=== PATIENT | female | born 1970 | race Caucasian/White ===

== ENCOUNTER → 2023-10-22 16:04 | Outpatient (REF) | payer OTHER, SELFPAY | LOC: RAD 16:04 | PROVIDERS: ATTENDING PHYSICIAN Physician Assistant Medical; FAMILY PHYSICIAN Family Medicine | DX: M79.605 Pain in left leg (principal) | CPT/HCPCS: 76882 ==

== ENCOUNTER → 2024-02-14 06:30 | Day surgery (SDC) | payer OTHER, SELFPAY | LOC: GI 06:30 | PROVIDERS: ATTENDING PHYSICIAN Internal Medicine Gastroenterology | DX: Z12.11 Encounter for screening for malignant neoplasm of colon (principal); R19.5 Other fecal abnormalities; C18.0 Malignant neoplasm of cecum; K64.8 Other hemorrhoids; K57.30 Diverticulosis of large intestine without perforation or abscess without bleeding; D49.0 Neoplasm of unspecified behavior of digestive system | CPT/HCPCS: 45380; 88305; 88342 ==

== ENCOUNTER → 2024-02-21 14:27 | Outpatient (REF) | payer OTHER, SELFPAY | LOC: HWRAD 14:27 | PROVIDERS: ATTENDING PHYSICIAN Internal Medicine Gastroenterology; FAMILY PHYSICIAN Physician Assistant Medical | DX: C18.2 Malignant neoplasm of ascending colon (principal) | CPT/HCPCS: 71270; 74178; Q9967 ==

== ENCOUNTER 2024-03-28 11:35 | Inpatient (IN) | payer OTHER, SELFPAY ==
[2024-03-18 13:49] VITALS: BMI 23.1
[2024-03-19 11:04] LABS: Glycohemoglobin (HgbA1c) 5.5 % (4.0-5.6)
[2024-03-28] VITALS (12 sets, daily range): BP systolic 93–117; BP diastolic 55–76; BMI 23.1
[2024-03-28] MEDS: HEPARIN 5000 UNITS SC (12:39)
[2024-03-28] MEDS: TYLENOL 1000 MG PO (12:39)
[2024-03-28] MEDS: NORMOSOL-R 1000 IV ×2 (12:47→19:30)
--- NOTE | 2024-03-28 18:09 | W.IMMPOSTOP ---
Surgical Immed Post Op Note
-
Primary Surgeon: Ashish Tello MD
Wiener Packer: ROBERT Marlow
Pre-op Diagnosis: Cecal cancer
Post-op Diagnosis: Same
Procedure Performed: Robotic right colectomy with intracorporeal anastomosis
Anesthesia Type: GET
Specimen / Cultures: Right colon
Estimated Blood Loss: 15cc
Complications: None
Operative Findings: No evidence of metastatic disease
Tumor in the cecum
Isoperistaltic intracorporeal anastomosis
Patient's updated.
Colon Resection
Colon Resection
Operation performed with curative intent: Yes
Tumor Location: Cecum
Right Hemicolectomy: Ileocolic and Right Colic
[2024-03-28] MEDS: DILAUDID 0.25 MG IV (18:39)
--- NOTE | 2024-03-28 19:30 | PTCARENOTE ---
patient arrived to [facility] post op colon resection. Pt is AAOx3, very pleasant, oriented to room. at beside. 5 surgical incisions CDI. Carter in place with yellow, clear urine draining. IVF infusing per order. No needs at this time. Plan of
care explained, assessment on going.
[2024-03-28] MEDS: TYLENOL 650 MG PO (20:25)
[2024-03-28] MEDS: TORADOL 15 MG IV (20:25)
[2024-03-29] MEDS: TYLENOL PO (01:01)
[2024-03-29] MEDS: TORADOL 15 MG IV ×4 (01:51→19:45)
[2024-03-29 03:49] VITALS: BP 99/56
[2024-03-29] MEDS: TYLENOL 650 MG PO ×5 (04:39→19:45)
[2024-03-29 06:34] LABS: % Basophils 0.1 % (0-2); % Immature Granulocytes 0.5 % (0-0.5); % Lymphocytes 7.1 % (20.5-51.1); % Monocytes 2.7 % (1.7-9.3); % Neutrophils 89.6 % (42.2-75.2); Absolute Immature Granulocytes 0.1 10^3/uL (0-0.05); Absolute Lymphocytes 0.8 10^3/uL (1.2-3.4); Absolute Monocytes 0.3 10^3/uL (0.1-0.6); Absolute Neutrophils 9.8 10^3/uL (1.4-6.5); Hematocrit 34.5 % (37.0-47.0); Mean Corp Hgb Conc. 31.9 g/dL (33.0-37.0); Mean Corpuscular Volume 84.6 fL (81.0-99.0); Mean Platelet Volume 9.9 fL (7.4-10.4); Nucleated Red Blood Cells % 0 %; Platelet Count 260 10^3/uL (130-400); Red Blood Cell Count 4.08 10^6/uL (4.20-5.40); Red Cell Dist. Width 13.2 % (11.5-14.5)
[2024-03-29 07:00] VITALS: BP 107/54
[2024-03-29 07:03] LABS: Blood Urea Nitrogen 13 mg/dl (7-17); Calcium 8.3 mg/dl (8.4-10.2); Carbon Dioxide 20 mmol/L (22-30); Chloride 106 mmol/L (98-107); Estimated Creatinine Clearance 63 ml/min; Glucose 81 mg/dl (70-99); Potassium 4.4 mmol/L (3.5-5.1); Sodium 137 mmol/L (135-145); eGFR > 60.00
[2024-03-29] MEDS: ENTEREG 12 MG PO (08:21)
[2024-03-29] MEDS: NORMOSOL-R 1000 IV (08:25)
--- NOTE | 2024-03-29 10:12 | W.PN.CRS1 ---
Today's Communication / Plan
-
Clear liquids and advance to fulls when passing flatus.
Lovenox/SCD's/ambulation for DVT prophylaxis.
Remove Carter.
Ok to shower today.
Operative findings reviewed, all questions answered.
Assessment/Plan
-
POD#1 s/p 03/28/24 robotic right colectomy for cecal cancer.
Progressing well.
Awaiting return of GI function
Subjective Data
Procedure
03/28/24 Robotic right colectomy for cecal cancer
Subjective Data
Date of Service: March 29, 2024
Her preoperative nausea has resolved. She has minimal abdominal discomfort. No flatus/bm.
Objective Data
-
Vital Signs
Temp Pulse Resp BP Pulse Ox
98.8 F 92 18 107/54 95
03/29/24 07:00 03/29/24 07:00 03/29/24 07:00 03/29/24 07:00 03/29/24 07:00
Intake & Output
03/28/24 03/29/24 03/30/24
06:59 06:59 06:59
Intake Total 1250 / 1250
Output Total 1100 / 1100
Balance 150 / 150
Intake:
IV fluids (Total) 1250 / 1250
normosol 150 / 150
Output:
Urine, Carter 1100 / 1100
Lab Results
03/29/24 04:40
03/29/24 04:40
Physical Exam
-
General: No Acute Distress
Abdomen: Soft, Non Distended and Non Tender
Extremities: No Calf Tenderness
Incision: Clear, Dry, Intact
--- NOTE | 2024-03-29 10:12 | CM ---
Initial assessment completed
Pharmacy verified: [id number]
Patient and spouse live [facility]; 1 step to enter; 13 steps between floors; powder room 1st floor; 2nd floor bath has stall shower
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
DME: none
SNF/Home Health utilization history: none
Transportation: will provide ride home
Plan: discharge to home when stable; no needs anticipated
[2024-03-29 11:22] VITALS: BP 123/63
[2024-03-29 15:24] VITALS: BP 109/63
[2024-03-29] MEDS: LOVENOX 40 MG SC (17:05)
[2024-03-29] MEDS: NORMOSOL-R IV (18:09)
[2024-03-29] MEDS: ENTEREG PO (19:52)
[2024-03-29 19:56] VITALS: BP 127/75
[2024-03-29 23:17] VITALS: BP 99/63
[2024-03-30] MEDS: TYLENOL PO ×2 (00:40→05:02)
[2024-03-30] MEDS: NORMOSOL-R IV (00:41)
[2024-03-30] MEDS: TORADOL IV ×2 (02:00→08:14)
[2024-03-30 05:58] VITALS: BMI 23.2
[2024-03-30 07:00] VITALS: BP 102/64
--- NOTE | 2024-03-30 08:07 | W.PN.CRS1 ---
Today's Communication / Plan
-
Low residue diet
Discharge home if tolerating well. I reviewed postop instructions (diet, medications, wound care, activity, and follow-up).
Final path pending.
Assessment/Plan
-
POD#2 s/p robotic right colectomy for cecal cancer.
Progressing well.
Advance diet and probable discharge today.
Subjective Data
Procedure
03/28/24 Robotic right colectomy for cecal cancer
Subjective Data
Date of Service: March 30, 2024
She has minimal abdominal discomfort and is passing flatus. She is tolerating full liquids.
Objective Data
-
Vital Signs
Temp Pulse Resp BP Pulse Ox
98.3 F 74 14 102/64 96
03/30/24 07:00 03/30/24 07:00 03/30/24 07:00 03/30/24 07:00 03/30/24 07:00
Intake & Output
03/29/24 03/30/24 03/31/24
06:59 06:59 06:59
Intake Total 1250 / 1250 2420 / 2420
Output Total 1100 / 1100 2150 / 2150
Balance 150 / 150 270 / 270
Intake:
Oral fluids 1620 / 1620
IV fluids (Total) 1250 / 1250 800 / 800
normosol 150 / 150
Output:
Urine, Carter 1100 / 1100 800 / 800
Urine, Voided 1350 / 1350
Other:
Number of approximated MODERATE 1
amounts of urine
Lab Results
03/29/24 04:40
03/29/24 04:40
Physical Exam
-
General: No Acute Distress
Abdomen: Soft, Non Distended and Non Tender
Extremities: No Calf Tenderness
Incision: Clear, Dry, Intact
[2024-03-30] MEDS: ENTEREG PO (08:14)
[2024-03-30] MEDS: TYLENOL 650 MG PO (08:14)
--- NOTE | 2024-03-30 09:54 | W.DCSUMMARY ---
Discharge Summary
Discharge Data
Date of Admission: 03/28/24
Date of Discharge: 03/30/24
-
Pending Results: No
Hospital Course
Ms Medellin presented for scheduled surgical management of cecal cancer and underwent a robotic right colectomy with isoperistaltic intracorporeal anastomosis. She tolerated the procedure well without complication. Diet was able to be advanced
post operatively and well tolerated. She was able to void without difficulty after removal of michelle catheter. Pain was well controlled prior to discharge. OR pathology is pending with outpatient follow up is planned in the coming weeks.
Discharge Plan
-
Patient Disposition: Home (Routine Discharge)
Discharge Diagnosis/Procedures: robotic right colectomy for cecal cancer.
Condition: Good
Diet: Low Fiber
Activity: No strenuous activity
Additional Activity: Do not lift over 10lbs (gallon of milk)
Driving Restrictions: wait until comfortable twisting/off narcotics
Bathing Restrictions: OK to Shower
Wound Care: Ok to shower and wash incisions gently with soap and water. The glue over your incisions will flake off on its own in 2-3 weeks. Avoid scrubbing or picking off the glue
Activity Restrictions/Additional Instructions:
Call your surgeon if you have nausea with vomiting, worsening pain or a fever >100.5
Instructions: Low Fiber Diet
Referrals:
Jani Tello MD [Active] - in two to four weeks
Carolyn Roy PA-C [Family Provider] -
Prescriptions:
New
acetaminophen [acetaminophen] 325 mg tablet
650 mg PO Q4HPRN PRN (Reason: mild pain) Qty: 1 0RF
ibuprofen 200 mg tablet
400 - 600 mg PO Q6HPRN PRN (Reason: moderate pain) Qty: 1 0RF
tramadol 50 mg tablet
25 - 50 mg PO Q6HPRN PRN (Reason: severe pain/breakthrough pain) Qty: 15 0RF
Continued
calcium carbonate-vitamin D3 600 mg-5 mcg (200 unit) Tablet
1 tab PO DAILY
cholecalciferol (vitamin D3) [Vitamin D3] 50 mcg (2,000 unit) Capsule
50 mcg PO DAILY
Centrum Silver Women 8 mg iron-400 mcg-50 mcg Tablet
1 tab PO DAILY
vit C-Zn gluc-herbal no.325 90-15 mg Lozenge
1 iza PO DAILY
Nutrafol
1 tab PO DAILY
Discontinued
metronidazole [Flagyl] 500 mg Tablet
500 mg PO PRE OP
Patient Comments:
1200/ 1500 and 2200 03/28/24
neomycin 500 mg Tablet
1,000 mg PO PRE OP
Patient Comments:
1400, 1500 and 2200 03/28/24
Sutab 1.479-0.188- 0.225 gram Tablet
0 tab PO PER PKG DIR
Discharge Orders:
Discharge Patient (As Directed); Ordered 03/30/24
Ordered By: Radha Dey
Discharge Date and Time
Print Language: ALBANIAN
[2024-03-30 11:39] VITALS: BP 124/70
--- NOTE | 2024-04-03 16:31 | PN.CDI ---
CDI
- -
CDI:
Physician Documentation Request
Admit Date: [f_Reg Admit Date Time]
Dear Doctor Omer
Please review the following and provide your response in the progress notes.
Clinical Indicators:
Patient with adenocarcinoma of the cecum
OR:
FINDINGS:
1. No evidence of metastatic disease.
Additional clinical indicators in the chart include Path report:
A. Colon, right, hemicolectomy:
� Invasive colonic adenocarcinoma, moderately differentiated (G2).
� All margins, negative for carcinoma.
� The tumor invades through the muscularis propria and pericolic fat tissue with focal serosal involvement (PT4).
� Five of twenty nine lymph nodes are positive for adenocarcinoma (5/29). The largest contiguous tumor in a lymph node measures 0.6cm.
Please indicate in your progress notes if you are in agreement that the above diagnosis is valid for this patient:
____ Metastasis to lymph nodes is a valid diagnosis (Please include it in your progress notes)
____Metastasis to lymph nodes is not a valid diagnosis for this patient
____ Metastasis to other specified site is a valid diagnosis
Metastasis to other specified site is not a valid diagnosis
____ - Other
____ - Unable to determine
Use of terms such as suspected, likely, concern for, or probable are acceptable for a diagnosis that is being evaluated, monitored or treated as if it exists and can be coded in the inpatient setting, when documented at the time of discharge.
Thank you,
Yvette Benjamin
[employer] Inpatient
Please use your independent medical judgment in providing your response.
--- NOTE | 2024-04-10 08:46 | W.PN.UPDATE ---
Update Note
Progress Note Update
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 �I reviewed this with her and she has an appointment with her oncologist.
== END 2024-03-30 11:49 | disposition home or self-care (01) | DRG 330 ==
LOC: 2 SOUTH 11:35
PROVIDERS: ADMITTING PHYSICIAN Surgery; FAMILY PHYSICIAN Physician Assistant Medical
PROC: 0DTF4ZZ Resection of Right Large Intestine, Percutaneous Endoscopic Approach (ICD-10-PCS; 2024-03-28)
DX: C18.0 Malignant neoplasm of cecum (principal); C77.2 Secondary and unspecified malignant neoplasm of intra-abdominal lymph nodes
CPT/HCPCS: 88309; 36415; 80048; 81459; 83036; 85025; 86850; 86900; 86901; 93005; J1335

== ENCOUNTER → 2024-04-18 10:03 | Outpatient (REF) | payer OTHER, SELFPAY ==
[2024-04-18] VITALS (8 sets, daily range): BP systolic 64–126; BP diastolic 63–99
[2024-04-18] MEDS: ANCEF 10 IV (11:18)
== END ==
LOC: RADI 10:03
PROVIDERS: ATTENDING PHYSICIAN Internal Medicine Hematology & Oncology; FAMILY PHYSICIAN Physician Assistant Medical
DX: C18.0 Malignant neoplasm of cecum (principal)
CPT/HCPCS: 36561; 76937; 77001; 99152; 99153; C1788

== ENCOUNTER → 2024-04-19 10:11 | Outpatient (REF) | payer OTHER, SELFPAY ==
[2024-04-19 12:39] LABS: % Basophils 0.7 % (0-2); % Eosinophils 0.7 % (0-6); % Immature Granulocytes 0.2 % (0-0.5); % Lymphocytes 40.8 % (20.5-51.1); % Monocytes 7.5 % (1.7-9.3); % Neutrophils 50.1 % (42.2-75.2); Absolute Lymphocytes 1.8 10^3/uL (1.2-3.4); Absolute Monocytes 0.3 10^3/uL (0.1-0.6); Absolute Neutrophils 2.2 10^3/uL (1.4-6.5); Hematocrit 36.5 % (37.0-47.0); Hemoglobin 11.9 g/dL (12.0-16.0); Mean Corp Hgb Conc. 32.6 g/dL (33.0-37.0); Mean Corpuscular Hgb 27.9 pg (27.0-31.0); Mean Corpuscular Volume 85.5 fL (81.0-99.0); Mean Platelet Volume 9.9 fL (7.4-10.4); Nucleated Red Blood Cells % 0 %; Platelet Count 337 10^3/uL (130-400); Red Blood Cell Count 4.27 10^6/uL (4.20-5.40); Red Cell Dist. Width 13.9 % (11.5-14.5); White Blood Cell Count 4.4 10^3/uL (4.8-10.8)
[2024-04-19 13:08] LABS: ALT (SGPT) 24 U/L (0-35); AST (SGOT) 30 U/L (14-36); Albumin 4.1 g/dl (3.5-5.0); Alkaline Phosphatase 89 U/L (38-126); Blood Urea Nitrogen 10 mg/dl (7-17); Calcium 9.6 mg/dl (8.4-10.2); Carbon Dioxide 27 mmol/L (22-30); Chloride 105 mmol/L (98-107); Glucose 74 mg/dl (70-99); Potassium 4.3 mmol/L (3.5-5.1); Sodium 136 mmol/L (135-145); Total Bilirubin 0.6 mg/dl (0.2-1.3); Total Protein 6.8 g/dl (6.3-8.2); eGFR > 60.00
== END ==
LOC: REG 10:11
PROVIDERS: ATTENDING PHYSICIAN Internal Medicine Hematology & Oncology; FAMILY PHYSICIAN Nurse Practitioner Adult Health
DX: C18.0 Malignant neoplasm of cecum (principal)
CPT/HCPCS: 36415; 80053; 85025

== ENCOUNTER → 2024-05-03 09:34 | Outpatient (REF) | payer OTHER, SELFPAY ==
[2024-05-03 11:16] LABS: % Basophils 0.2 % (0-2); % Eosinophils 1.1 % (0-6); % Immature Granulocytes 0.2 % (0-0.5); % Lymphocytes 33.2 % (20.5-51.1); % Monocytes 8.6 % (1.7-9.3); % Neutrophils 56.7 % (42.2-75.2); Absolute Eosinophils 0.1 10^3/uL (0-0.7); Absolute Lymphocytes 1.5 10^3/uL (1.2-3.4); Absolute Monocytes 0.4 10^3/uL (0.1-0.6); Absolute Neutrophils 2.5 10^3/uL (1.4-6.5); Hematocrit 33.2 % (37.0-47.0); Hemoglobin 10.8 g/dL (12.0-16.0); Mean Corp Hgb Conc. 32.5 g/dL (33.0-37.0); Mean Platelet Volume 9.3 fL (7.4-10.4); Nucleated Red Blood Cells % 0 %; Platelet Count 221 10^3/uL (130-400); Red Cell Dist. Width 13.9 % (11.5-14.5); White Blood Cell Count 4.4 10^3/uL (4.8-10.8)
[2024-05-03 11:42] LABS: ALT (SGPT) 18 U/L (0-35); AST (SGOT) 25 U/L (14-36); Albumin 3.7 g/dl (3.5-5.0); Alkaline Phosphatase 80 U/L (38-126); Blood Urea Nitrogen 11 mg/dl (7-17); Calcium 9.1 mg/dl (8.4-10.2); Carbon Dioxide 25 mmol/L (22-30); Chloride 107 mmol/L (98-107); Glucose 92 mg/dl (70-99); Sodium 142 mmol/L (135-145); Total Bilirubin 0.3 mg/dl (0.2-1.3); Total Protein 6.4 g/dl (6.3-8.2); eGFR > 60.00
== END ==
LOC: REG 09:34
PROVIDERS: ATTENDING PHYSICIAN Internal Medicine Hematology & Oncology; FAMILY PHYSICIAN Physician Assistant Medical
DX: C18.0 Malignant neoplasm of cecum (principal)
CPT/HCPCS: 36415; 80053; 85025

== ENCOUNTER → 2024-05-17 09:19 | Outpatient (REF) | payer OTHER, SELFPAY ==
[2024-05-17 10:34] LABS: % Basophils 0.8 % (0-2); % Immature Granulocytes 0.3 % (0-0.5); % Lymphocytes 47.8 % (20.5-51.1); % Monocytes 10.7 % (1.7-9.3); % Neutrophils 38.4 % (42.2-75.2); Absolute Eosinophils 0.1 10^3/uL (0-0.7); Absolute Lymphocytes 1.9 10^3/uL (1.2-3.4); Absolute Monocytes 0.4 10^3/uL (0.1-0.6); Absolute Neutrophils 1.5 10^3/uL (1.4-6.5); Hematocrit 34.6 % (37.0-47.0); Hemoglobin 11.4 g/dL (12.0-16.0); Mean Corp Hgb Conc. 32.9 g/dL (33.0-37.0); Mean Corpuscular Hgb 27.7 pg (27.0-31.0); Mean Platelet Volume 8.9 fL (7.4-10.4); Nucleated Red Blood Cells % 0.5 %; Platelet Count 213 10^3/uL (130-400); Red Blood Cell Count 4.12 10^6/uL (4.20-5.40); Red Cell Dist. Width 14.8 % (11.5-14.5); White Blood Cell Count 3.9 10^3/uL (4.8-10.8)
[2024-05-17 11:02] LABS: ALT (SGPT) 47 U/L (0-35); AST (SGOT) 37 U/L (14-36); Albumin 3.8 g/dl (3.5-5.0); Alkaline Phosphatase 88 U/L (38-126); Blood Urea Nitrogen 8 mg/dl (7-17); Calcium 9.6 mg/dl (8.4-10.2); Carbon Dioxide 24 mmol/L (22-30); Chloride 105 mmol/L (98-107); Glucose 83 mg/dl (70-99); Potassium 4.6 mmol/L (3.5-5.1); Sodium 141 mmol/L (135-145); Total Bilirubin 0.4 mg/dl (0.2-1.3); Total Protein 6.3 g/dl (6.3-8.2); eGFR > 60.00
== END ==
LOC: REG 09:19
PROVIDERS: ATTENDING PHYSICIAN Internal Medicine Hematology & Oncology; FAMILY PHYSICIAN Physician Assistant Medical
DX: C18.0 Malignant neoplasm of cecum (principal)
CPT/HCPCS: 36415; 80053; 85025

== ENCOUNTER → 2024-05-31 10:13 | Outpatient (REF) | payer OTHER, SELFPAY ==
[2024-05-31 11:05] LABS: % Basophils 0.8 % (0-2); % Eosinophils 1.1 % (0-6); % Lymphocytes 46.1 % (20.5-51.1); Absolute Lymphocytes 1.7 10^3/uL (1.2-3.4); Absolute Monocytes 0.4 10^3/uL (0.1-0.6); Absolute Neutrophils 1.5 10^3/uL (1.4-6.5); Hematocrit 35.4 % (37.0-47.0); Hemoglobin 11.8 g/dL (12.0-16.0); Mean Corp Hgb Conc. 33.3 g/dL (33.0-37.0); Mean Corpuscular Hgb 28.1 pg (27.0-31.0); Mean Corpuscular Volume 84.3 fL (81.0-99.0); Mean Platelet Volume 8.9 fL (7.4-10.4); Nucleated Red Blood Cells % 0 %; Platelet Count 168 10^3/uL (130-400); Red Cell Dist. Width 16.4 % (11.5-14.5); White Blood Cell Count 3.6 10^3/uL (4.8-10.8)
[2024-05-31 11:32] LABS: ALT (SGPT) 62 U/L (0-35); AST (SGOT) 53 U/L (14-36); Albumin 3.9 g/dl (3.5-5.0); Alkaline Phosphatase 95 U/L (38-126); Blood Urea Nitrogen 9 mg/dl (7-17); Calcium 9.6 mg/dl (8.4-10.2); Carbon Dioxide 24 mmol/L (22-30); Chloride 106 mmol/L (98-107); Glucose 104 mg/dl (70-99); Potassium 4.1 mmol/L (3.5-5.1); Sodium 140 mmol/L (135-145); Total Bilirubin 0.4 mg/dl (0.2-1.3); Total Protein 6.6 g/dl (6.3-8.2); eGFR > 60.00
== END ==
LOC: REG 10:13
PROVIDERS: ATTENDING PHYSICIAN Internal Medicine Hematology & Oncology; FAMILY PHYSICIAN Physician Assistant Medical
DX: C18.0 Malignant neoplasm of cecum (principal)
CPT/HCPCS: 36415; 80053; 85025

== ENCOUNTER → 2024-06-14 09:43 | Outpatient (REF) | payer OTHER, SELFPAY ==
[2024-06-14 10:09] LABS: % Basophils 0.9 % (0-2); % Eosinophils 0.9 % (0-6); % Immature Granulocytes 0.3 % (0-0.5); % Lymphocytes 39.4 % (20.5-51.1); % Monocytes 13.8 % (1.7-9.3); % Neutrophils 44.7 % (42.2-75.2); Absolute Lymphocytes 1.3 10^3/uL (1.2-3.4); Absolute Monocytes 0.5 10^3/uL (0.1-0.6); Absolute Neutrophils 1.5 10^3/uL (1.4-6.5); Hematocrit 36.5 % (37.0-47.0); Mean Corp Hgb Conc. 32.9 g/dL (33.0-37.0); Mean Platelet Volume 9.2 fL (7.4-10.4); Nucleated Red Blood Cells % 0 %; Platelet Count 124 10^3/uL (130-400); Red Blood Cell Count 4.45 10^6/uL (4.20-5.40); Red Cell Dist. Width 18.3 % (11.5-14.5); White Blood Cell Count 3.4 10^3/uL (4.8-10.8)
[2024-06-14 10:33] LABS: ALT (SGPT) 211 U/L (0-35); AST (SGOT) 167 U/L (14-36); Alkaline Phosphatase 112 U/L (38-126); Blood Urea Nitrogen 10 mg/dl (7-17); Calcium 9.8 mg/dl (8.4-10.2); Carbon Dioxide 25 mmol/L (22-30); Chloride 106 mmol/L (98-107); Glucose 95 mg/dl (70-99); Potassium 4.7 mmol/L (3.5-5.1); Sodium 141 mmol/L (135-145); Total Bilirubin 0.3 mg/dl (0.2-1.3); Total Protein 6.8 g/dl (6.3-8.2); eGFR > 60.00
== END ==
LOC: REG 09:43
PROVIDERS: ATTENDING PHYSICIAN Internal Medicine Hematology & Oncology; FAMILY PHYSICIAN Physician Assistant Medical
DX: C18.0 Malignant neoplasm of cecum (principal)
CPT/HCPCS: 36415; 80053; 85025

== ENCOUNTER → 2024-06-26 14:53 | Outpatient (REF) | payer OTHER, SELFPAY ==
[2024-06-26 11:03] LABS: % Basophils 0.9 % (0-2); % Eosinophils 0.3 % (0-6); % Immature Granulocytes 0.3 % (0-0.5); % Lymphocytes 45.2 % (20.5-51.1); % Monocytes 13.6 % (1.7-9.3); % Neutrophils 39.7 % (42.2-75.2); Absolute Lymphocytes 1.5 10^3/uL (1.2-3.4); Absolute Monocytes 0.5 10^3/uL (0.1-0.6); Absolute Neutrophils 1.3 10^3/uL (1.4-6.5); Hemoglobin 11.9 g/dL (12.0-16.0); Mean Corp Hgb Conc. 33.1 g/dL (33.0-37.0); Mean Corpuscular Hgb 28.3 pg (27.0-31.0); Mean Corpuscular Volume 85.7 fL (81.0-99.0); Mean Platelet Volume 9.6 fL (7.4-10.4); Platelet Count 53 10^3/uL (130-400); Red Cell Dist. Width 18.4 % (11.5-14.5); White Blood Cell Count 3.3 10^3/uL (4.8-10.8)
[2024-06-26 11:26] LABS: ALT (SGPT) 103 U/L (0-35); AST (SGOT) 88 U/L (14-36); Albumin 4.1 g/dl (3.5-5.0); Alkaline Phosphatase 159 U/L (38-126); Blood Urea Nitrogen 7 mg/dl (7-17); Calcium 9.3 mg/dl (8.4-10.2); Carbon Dioxide 22 mmol/L (22-30); Chloride 106 mmol/L (98-107); Glucose 96 mg/dl (70-99); Potassium 3.9 mmol/L (3.5-5.1); Sodium 140 mmol/L (135-145); Total Bilirubin 0.4 mg/dl (0.2-1.3); Total Protein 6.9 g/dl (6.3-8.2); eGFR > 60.00
== END ==
LOC: OIDL 14:53
PROVIDERS: ATTENDING PHYSICIAN Internal Medicine Hematology & Oncology
DX: C18.0 Malignant neoplasm of cecum (principal)
CPT/HCPCS: 80053; 85025

== ENCOUNTER → 2024-06-30 09:00 | Outpatient (REF) | payer OTHER, SELFPAY ==
[2024-06-30 10:29] LABS: White Blood Cell Count 2.6 10^3/uL (4.8-10.8)
[2024-06-30 10:30] LABS: Hematocrit 34.5 % (37.0-47.0); Hemoglobin 11.6 g/dL (12.0-16.0); Mean Corp Hgb Conc. 33.6 g/dL (33.0-37.0); Mean Corpuscular Hgb 29.1 pg (27.0-31.0); Mean Corpuscular Volume 86.7 fL (81.0-99.0); Red Blood Cell Count 3.98 10^6/uL (4.20-5.40); Red Cell Dist. Width 19.7 % (11.5-14.5)
[2024-06-30 10:50] LABS: ALT (SGPT) 84 U/L (0-35); AST (SGOT) 84 U/L (14-36); Albumin 3.7 g/dl (3.5-5.0); Alkaline Phosphatase 149 U/L (38-126); Blood Urea Nitrogen 7 mg/dl (7-17); Calcium 9.1 mg/dl (8.4-10.2); Carbon Dioxide 21 mmol/L (22-30); Chloride 106 mmol/L (98-107); Glucose 94 mg/dl (70-99); Potassium 3.9 mmol/L (3.5-5.1); Sodium 139 mmol/L (135-145); Total Bilirubin 0.4 mg/dl (0.2-1.3); Total Protein 6.6 g/dl (6.3-8.2); eGFR > 60.00
[2024-06-30 11:58] LABS: % Basophils 0.8 % (0-2); % Eosinophils 0.4 % (0-6); % Lymphocytes 47.5 % (20.5-51.1); % Monocytes 17.3 % (1.7-9.3); Absolute Lymphocytes 1.2 10^3/uL (1.2-3.4); Absolute Monocytes 0.4 10^3/uL (0.1-0.6); Absolute Neutrophils 0.9 10^3/uL (1.4-6.5); Mean Platelet Volume 10.3 fL (7.4-10.4); Nucleated Red Blood Cells % 0 %; Platelet Count 47 10^3/uL (130-400)
== END ==
LOC: REG 09:00
PROVIDERS: ATTENDING PHYSICIAN Internal Medicine Hematology & Oncology; FAMILY PHYSICIAN Physician Assistant Medical
DX: C18.0 Malignant neoplasm of cecum (principal)
CPT/HCPCS: 36415; 80053; 85025

== ENCOUNTER → 2024-07-07 08:00 | Outpatient (REF) | payer OTHER, SELFPAY ==
[2024-07-07 09:58] LABS: Hematocrit 39.1 % (37.0-47.0); Hemoglobin 12.6 g/dL (12.0-16.0); Mean Corp Hgb Conc. 32.2 g/dL (33.0-37.0); Mean Corpuscular Hgb 28.5 pg (27.0-31.0); Mean Corpuscular Volume 88.5 fL (81.0-99.0); Mean Platelet Volume 10.4 fL (7.4-10.4); Platelet Count 119 10^3/uL (130-400); Red Blood Cell Count 4.42 10^6/uL (4.20-5.40); White Blood Cell Count 2.6 10^3/uL (4.8-10.8)
[2024-07-07 10:15] LABS: ALT (SGPT) 72 U/L (0-35); AST (SGOT) 74 U/L (14-36); Alkaline Phosphatase 156 U/L (38-126); Blood Urea Nitrogen 7 mg/dl (7-17); Calcium 10.5 mg/dl (8.4-10.2); Carbon Dioxide 25 mmol/L (22-30); Chloride 104 mmol/L (98-107); Glucose 93 mg/dl (70-99); Sodium 142 mmol/L (135-145); Total Bilirubin 0.4 mg/dl (0.2-1.3); Total Protein 7.1 g/dl (6.3-8.2); eGFR > 60.00
[2024-07-07 11:00] LABS: Absolute Neutrophils -Man Diff 0.8 10^3/uL (1.4-6.5); Anisocytosis 1+; Atypical Lymphocytes 1 %; Band Neutrophils 1 % (0-3); Hypochromasia 1+; Lymphocytes 52 % (20-51); Monocytes 13 % (2-9); Normal RBC Morphology No; Ovalocytes 1+; Platelets Checked Yes; Polychromasia 1+; Segmented Neutrophils 33 % (42-75); Total Cells Counted 100
== END ==
LOC: REG 08:00
PROVIDERS: ATTENDING PHYSICIAN Internal Medicine Hematology & Oncology; FAMILY PHYSICIAN Physician Assistant Medical
DX: C18.0 Malignant neoplasm of cecum (principal)
CPT/HCPCS: 36415; 80053; 85025

== ENCOUNTER → 2024-07-09 10:54 | Outpatient (REF) | payer OTHER, SELFPAY ==
[2024-07-09 12:27] LABS: Urine Albumin Negative (Neg - Trace); Urine Bilirubin Negative (Negative); Urine Character Clear (Clear); Urine Color Yellow; Urine Glucose Negative (Negative); Urine Ketone Negative (Negative); Urine Leukocyte Trace (Negative); Urine Nitrite Negative (Negative); Urine Occult Blood Negative (Negative); Urine Urobilinogen Negative (Neg - 1+)
[2024-07-09 13:09] LABS: Urine Bacteria Few (Negative); Urine Red Blood Cell 0-2 /HPF (0-2); Urine White Cell 16-20 /HPF (0-5)
== END ==
LOC: REG 10:54
PROVIDERS: ATTENDING PHYSICIAN Internal Medicine Hematology & Oncology; FAMILY PHYSICIAN Physician Assistant Medical
DX: C18.0 Malignant neoplasm of cecum (principal)
CPT/HCPCS: 81003; 81015; 87086

== ENCOUNTER → 2024-07-12 07:52 | Outpatient (REF) | payer OTHER, SELFPAY | LOC: WDC 07:52 | PROVIDERS: ATTENDING PHYSICIAN Obstetrics & Gynecology; FAMILY PHYSICIAN Physician Assistant Medical | DX: Z12.31 Encounter for screening mammogram for malignant neoplasm of breast (principal) | CPT/HCPCS: 77063; 77067 ==

== ENCOUNTER → 2024-07-14 07:54 | Outpatient (REF) | payer OTHER, SELFPAY ==
[2024-07-14 08:50] LABS: % Basophils 0.9 % (0-2); % Eosinophils 0.7 % (0-6); % Immature Granulocytes 0.7 % (0-0.5); % Lymphocytes 38.2 % (20.5-51.1); % Monocytes 11.4 % (1.7-9.3); % Neutrophils 48.1 % (42.2-75.2); Absolute Lymphocytes 1.7 10^3/uL (1.2-3.4); Absolute Monocytes 0.5 10^3/uL (0.1-0.6); Absolute Neutrophils 2.2 10^3/uL (1.4-6.5); Hematocrit 40.8 % (37.0-47.0); Hemoglobin 13.3 g/dL (12.0-16.0); Mean Corp Hgb Conc. 32.6 g/dL (33.0-37.0); Mean Corpuscular Volume 89.1 fL (81.0-99.0); Mean Platelet Volume 10.9 fL (7.4-10.4); Nucleated Red Blood Cells % 0 %; Platelet Count 131 10^3/uL (130-400); Red Blood Cell Count 4.58 10^6/uL (4.20-5.40); Red Cell Dist. Width 18.9 % (11.5-14.5); White Blood Cell Count 4.6 10^3/uL (4.8-10.8)
[2024-07-14 09:19] LABS: ALT (SGPT) 68 U/L (0-35); AST (SGOT) 74 U/L (14-36); Alkaline Phosphatase 141 U/L (38-126); Blood Urea Nitrogen 11 mg/dl (7-17); Calcium 9.9 mg/dl (8.4-10.2); Carbon Dioxide 27 mmol/L (22-30); Chloride 106 mmol/L (98-107); Glucose 89 mg/dl (70-99); Potassium 4.7 mmol/L (3.5-5.1); Sodium 142 mmol/L (135-145); Total Bilirubin 0.4 mg/dl (0.2-1.3); Total Protein 7.4 g/dl (6.3-8.2); eGFR > 60.00
== END ==
LOC: REG 07:54
PROVIDERS: ATTENDING PHYSICIAN Internal Medicine Hematology & Oncology; FAMILY PHYSICIAN Physician Assistant Medical
DX: C18.0 Malignant neoplasm of cecum (principal)
CPT/HCPCS: 36415; 80053; 85025

== ENCOUNTER → 2024-07-28 07:53 | Outpatient (REF) | payer OTHER, SELFPAY ==
[2024-07-28 08:56] LABS: % Basophils 0.6 % (0-2); % Eosinophils 0.9 % (0-6); % Immature Granulocytes 3.7 % (0-0.5); % Monocytes 9.5 % (1.7-9.3); % Neutrophils 56.3 % (42.2-75.2); Absolute Eosinophils 0.1 10^3/uL (0-0.7); Absolute Immature Granulocytes 0.3 10^3/uL (0-0.05); Absolute Monocytes 0.7 10^3/uL (0.1-0.6); Absolute Neutrophils 3.9 10^3/uL (1.4-6.5); Hematocrit 41.2 % (37.0-47.0); Hemoglobin 13.2 g/dL (12.0-16.0); Mean Corpuscular Hgb 29.6 pg (27.0-31.0); Mean Corpuscular Volume 92.4 fL (81.0-99.0); Mean Platelet Volume 10.8 fL (7.4-10.4); Nucleated Red Blood Cells % 0 %; Platelet Count 92 10^3/uL (130-400); Red Blood Cell Count 4.46 10^6/uL (4.20-5.40); Red Cell Dist. Width 18.9 % (11.5-14.5)
[2024-07-28 09:38] LABS: ALT (SGPT) 79 U/L (0-35); AST (SGOT) 86 U/L (14-36); Alkaline Phosphatase 206 U/L (38-126); Blood Urea Nitrogen 11 mg/dl (7-17); Carbon Dioxide 25 mmol/L (22-30); Chloride 103 mmol/L (98-107); Glucose 104 mg/dl (70-99); Potassium 4.2 mmol/L (3.5-5.1); Sodium 139 mmol/L (135-145); Total Bilirubin 0.3 mg/dl (0.2-1.3); eGFR > 60.00
== END ==
LOC: REG 07:53
PROVIDERS: ATTENDING PHYSICIAN Internal Medicine Hematology & Oncology; FAMILY PHYSICIAN Physician Assistant Medical
DX: C18.0 Malignant neoplasm of cecum (principal)
CPT/HCPCS: 36415; 80053; 85025

== ENCOUNTER → 2024-08-05 07:54 | Outpatient (REF) | payer OTHER, SELFPAY ==
[2024-08-05 08:42] LABS: % Basophils 0.8 % (0-2); % Eosinophils 0.6 % (0-6); % Immature Granulocytes 0.3 % (0-0.5); % Lymphocytes 38.1 % (20.5-51.1); % Monocytes 8.2 % (1.7-9.3); Absolute Lymphocytes 1.4 10^3/uL (1.2-3.4); Absolute Monocytes 0.3 10^3/uL (0.1-0.6); Absolute Neutrophils 1.8 10^3/uL (1.4-6.5); Hematocrit 37.3 % (37.0-47.0); Hemoglobin 12.5 g/dL (12.0-16.0); Mean Corp Hgb Conc. 33.5 g/dL (33.0-37.0); Mean Corpuscular Hgb 29.8 pg (27.0-31.0); Mean Corpuscular Volume 88.8 fL (81.0-99.0); Mean Platelet Volume 9.9 fL (7.4-10.4); Nucleated Red Blood Cells % 0 %; Platelet Count 115 10^3/uL (130-400); Red Cell Dist. Width 17.6 % (11.5-14.5); White Blood Cell Count 3.5 10^3/uL (4.8-10.8)
[2024-08-05 08:58] LABS: ALT (SGPT) 93 U/L (0-35); AST (SGOT) 82 U/L (14-36); Albumin 3.8 g/dl (3.5-5.0); Alkaline Phosphatase 185 U/L (38-126); Blood Urea Nitrogen 9 mg/dl (7-17); Calcium 9.4 mg/dl (8.4-10.2); Carbon Dioxide 21 mmol/L (22-30); Chloride 107 mmol/L (98-107); Glucose 113 mg/dl (70-99); Potassium 4.1 mmol/L (3.5-5.1); Sodium 140 mmol/L (135-145); Total Bilirubin 0.4 mg/dl (0.2-1.3); Total Protein 6.9 g/dl (6.3-8.2); eGFR > 60.00
== END ==
LOC: REG 07:54
PROVIDERS: ATTENDING PHYSICIAN Internal Medicine Hematology & Oncology
DX: C18.0 Malignant neoplasm of cecum (principal)
CPT/HCPCS: 36415; 80053; 85025

== ENCOUNTER → 2024-08-11 08:00 | Outpatient (REF) | payer OTHER, SELFPAY ==
[2024-08-11 09:48] LABS: Hematocrit 40.2 % (37.0-47.0); Hemoglobin 13.1 g/dL (12.0-16.0); Mean Corp Hgb Conc. 32.6 g/dL (33.0-37.0); Mean Corpuscular Hgb 30.7 pg (27.0-31.0); Mean Corpuscular Volume 94.1 fL (81.0-99.0); Mean Platelet Volume 10.5 fL (7.4-10.4); Platelet Count 113 10^3/uL (130-400); Red Blood Cell Count 4.27 10^6/uL (4.20-5.40); Red Cell Dist. Width 17.9 % (11.5-14.5)
[2024-08-11 10:25] LABS: ALT (SGPT) 87 U/L (0-35); AST (SGOT) 84 U/L (14-36); Alkaline Phosphatase 185 U/L (38-126); Blood Urea Nitrogen 8 mg/dl (7-17); Calcium 9.9 mg/dl (8.4-10.2); Carbon Dioxide 28 mmol/L (22-30); Chloride 104 mmol/L (98-107); Glucose 109 mg/dl (70-99); Potassium 4.3 mmol/L (3.5-5.1); Sodium 140 mmol/L (135-145); Total Bilirubin 0.4 mg/dl (0.2-1.3); Total Protein 7.1 g/dl (6.3-8.2); eGFR > 60.00
[2024-08-11 12:35] LABS: Band Neutrophils 1 % (0-3); Lymphocytes 40.7 % (20-51); Monocytes 11 % (2-9); Segmented Neutrophils 31.3 % (42-75)
[2024-08-11 12:36] LABS: Atypical Lymphocytes 12 %; Eosinophils 3 % (0-6); Normal RBC Morphology Yes; Platelets Checked Yes; Total Cells Counted 100
== END ==
LOC: REG 08:00
PROVIDERS: ATTENDING PHYSICIAN Internal Medicine Hematology & Oncology; FAMILY PHYSICIAN Physician Assistant Medical
DX: C18.0 Malignant neoplasm of cecum (principal)
CPT/HCPCS: 36415; 80053; 85025

== ENCOUNTER → 2024-08-21 09:43 | Outpatient (REF) | payer OTHER, SELFPAY ==
[2024-08-21 10:32] LABS: % Basophils 0.6 % (0-2); % Eosinophils 0.3 % (0-6); % Immature Granulocytes 3.2 % (0-0.5); % Lymphocytes 18.8 % (20.5-51.1); % Monocytes 12.1 % (1.7-9.3); Absolute Basophils 0.1 10^3/uL (0-0.2); Absolute Immature Granulocytes 0.3 10^3/uL (0-0.05); Absolute Lymphocytes 1.8 10^3/uL (1.2-3.4); Absolute Monocytes 1.2 10^3/uL (0.1-0.6); Absolute Neutrophils 6.4 10^3/uL (1.4-6.5); Hematocrit 40.9 % (37.0-47.0); Mean Corp Hgb Conc. 31.8 g/dL (33.0-37.0); Mean Corpuscular Hgb 29.8 pg (27.0-31.0); Mean Corpuscular Volume 93.8 fL (81.0-99.0); Mean Platelet Volume 10.3 fL (7.4-10.4); Nucleated Red Blood Cells % 0 %; Platelet Count 106 10^3/uL (130-400); Red Blood Cell Count 4.36 10^6/uL (4.20-5.40); Red Cell Dist. Width 17.6 % (11.5-14.5); White Blood Cell Count 9.8 10^3/uL (4.8-10.8)
== END ==
LOC: REG 09:43
PROVIDERS: ATTENDING PHYSICIAN Internal Medicine Hematology & Oncology; FAMILY PHYSICIAN Physician Assistant Medical
DX: C18.0 Malignant neoplasm of cecum (principal); D70.9 Neutropenia, unspecified
CPT/HCPCS: 36415; 85025

== ENCOUNTER → 2024-08-25 08:18 | Outpatient (REF) | payer OTHER, SELFPAY ==
[2024-08-25 09:25] LABS: % Basophils 0.7 % (0-2); % Eosinophils 0.4 % (0-6); % Immature Granulocytes 2.1 % (0-0.5); % Lymphocytes 25.6 % (20.5-51.1); % Monocytes 8.4 % (1.7-9.3); % Neutrophils 62.8 % (42.2-75.2); Absolute Basophils 0.1 10^3/uL (0-0.2); Absolute Immature Granulocytes 0.2 10^3/uL (0-0.05); Absolute Lymphocytes 2.2 10^3/uL (1.2-3.4); Absolute Monocytes 0.7 10^3/uL (0.1-0.6); Absolute Neutrophils 5.3 10^3/uL (1.4-6.5); Hematocrit 39.8 % (37.0-47.0); Hemoglobin 13.1 g/dL (12.0-16.0); Mean Corp Hgb Conc. 32.9 g/dL (33.0-37.0); Mean Corpuscular Hgb 30.1 pg (27.0-31.0); Mean Corpuscular Volume 91.5 fL (81.0-99.0); Mean Platelet Volume 10.1 fL (7.4-10.4); Nucleated Red Blood Cells % 0 %; Platelet Count 78 10^3/uL (130-400); Red Blood Cell Count 4.35 10^6/uL (4.20-5.40); Red Cell Dist. Width 17.6 % (11.5-14.5); White Blood Cell Count 8.4 10^3/uL (4.8-10.8)
[2024-08-25 09:38] LABS: ALT (SGPT) 95 U/L (0-35); AST (SGOT) 95 U/L (14-36); Alkaline Phosphatase 265 U/L (38-126); Blood Urea Nitrogen 6 mg/dl (7-17); Calcium 9.5 mg/dl (8.4-10.2); Carbon Dioxide 26 mmol/L (22-30); Chloride 104 mmol/L (98-107); Glucose 103 mg/dl (70-99); Potassium 4.1 mmol/L (3.5-5.1); Sodium 139 mmol/L (135-145); Total Bilirubin 0.6 mg/dl (0.2-1.3); Total Protein 7.5 g/dl (6.3-8.2); eGFR > 60.00
== END ==
LOC: REG 08:18
PROVIDERS: ATTENDING PHYSICIAN Internal Medicine Hematology & Oncology; FAMILY PHYSICIAN Physician Assistant Medical
DX: C18.0 Malignant neoplasm of cecum (principal)
CPT/HCPCS: 36415; 80053; 85025

== ENCOUNTER → 2024-09-08 07:45 | Outpatient (REF) | payer OTHER, SELFPAY ==
[2024-09-08 08:27] LABS: % Eosinophils 0.1 % (0-6); % Lymphocytes 29.5 % (20.5-51.1); % Monocytes 7.6 % (1.7-9.3); % Neutrophils 56.8 % (42.2-75.2); Absolute Basophils 0.1 10^3/uL (0-0.2); Absolute Immature Granulocytes 0.4 10^3/uL (0-0.05); Absolute Lymphocytes 2.1 10^3/uL (1.2-3.4); Absolute Monocytes 0.5 10^3/uL (0.1-0.6); Absolute Neutrophils 3.9 10^3/uL (1.4-6.5); Hematocrit 40.3 % (37.0-47.0); Hemoglobin 13.1 g/dL (12.0-16.0); Mean Corp Hgb Conc. 32.5 g/dL (33.0-37.0); Mean Corpuscular Hgb 30.3 pg (27.0-31.0); Mean Corpuscular Volume 93.3 fL (81.0-99.0); Mean Platelet Volume 10.4 fL (7.4-10.4); Nucleated Red Blood Cells % 0 %; Platelet Count 124 10^3/uL (130-400); Red Blood Cell Count 4.32 10^6/uL (4.20-5.40); Red Cell Dist. Width 16.9 % (11.5-14.5); White Blood Cell Count 6.9 10^3/uL (4.8-10.8)
[2024-09-08 09:06] LABS: ALT (SGPT) 80 U/L (0-35); AST (SGOT) 93 U/L (14-36); Albumin 3.8 g/dl (3.5-5.0); Alkaline Phosphatase 285 U/L (38-126); Blood Urea Nitrogen 8 mg/dl (7-17); Calcium 9.7 mg/dl (8.4-10.2); Carbon Dioxide 28 mmol/L (22-30); Chloride 105 mmol/L (98-107); Glucose 123 mg/dl (70-99); Potassium 4.7 mmol/L (3.5-5.1); Sodium 139 mmol/L (135-145); Total Bilirubin 0.4 mg/dl (0.2-1.3); Total Protein 7.2 g/dl (6.3-8.2); eGFR > 60.00
== END ==
LOC: REG 07:45
PROVIDERS: ATTENDING PHYSICIAN Internal Medicine Hematology & Oncology; FAMILY PHYSICIAN Physician Assistant Medical
DX: C18.0 Malignant neoplasm of cecum (principal)
CPT/HCPCS: 36415; 80053; 85025

== ENCOUNTER → 2024-09-22 08:11 | Outpatient (REF) | payer OTHER, SELFPAY ==
[2024-09-22 10:06] LABS: Hemoglobin 13.1 g/dL (12.0-16.0); Mean Corp Hgb Conc. 32.8 g/dL (33.0-37.0); Mean Corpuscular Hgb 30.3 pg (27.0-31.0); Mean Corpuscular Volume 92.6 fL (81.0-99.0); Mean Platelet Volume 10.2 fL (7.4-10.4); Platelet Count 118 10^3/uL (130-400); Red Blood Cell Count 4.32 10^6/uL (4.20-5.40); Red Cell Dist. Width 16.7 % (11.5-14.5); White Blood Cell Count 9.7 10^3/uL (4.8-10.8)
[2024-09-22 10:22] LABS: ALT (SGPT) 74 U/L (0-35); AST (SGOT) 90 U/L (14-36); Albumin 3.9 g/dl (3.5-5.0); Alkaline Phosphatase 292 U/L (38-126); Blood Urea Nitrogen 8 mg/dl (7-17); Calcium 9.5 mg/dl (8.4-10.2); Carbon Dioxide 25 mmol/L (22-30); Chloride 104 mmol/L (98-107); Glucose 96 mg/dl (70-99); Potassium 4.2 mmol/L (3.5-5.1); Sodium 138 mmol/L (135-145); Total Bilirubin 0.4 mg/dl (0.2-1.3); Total Protein 7.4 g/dl (6.3-8.2); eGFR > 60.00
[2024-09-22 11:20] LABS: Absolute Neutrophils -Man Diff 5.5 10^3/uL (1.4-6.5); Atypical Lymphocytes 4 %; Band Neutrophils 9 % (0-3); Lymphocytes 24 % (20-51); Metamyelocytes 2 % (-); Monocytes 12 % (2-9); Myelocytes 1 % (-); Platelets Checked Yes; Segmented Neutrophils 48 % (42-75)
[2024-09-22 11:21] LABS: Normal RBC Morphology Yes; Total Cells Counted 100
== END ==
LOC: REG 08:11
PROVIDERS: ATTENDING PHYSICIAN Internal Medicine Hematology & Oncology
DX: C18.0 Malignant neoplasm of cecum (principal)
CPT/HCPCS: 36415; 80053; 85025

== ENCOUNTER → 2024-10-06 08:14 | Outpatient (REF) | payer OTHER, SELFPAY ==
[2024-10-06 09:16] LABS: % Basophils 0.9 % (0-2); % Eosinophils 0.4 % (0-6); % Immature Granulocytes 0.9 % (0-0.5); % Lymphocytes 35.9 % (20.5-51.1); % Monocytes 8.3 % (1.7-9.3); % Neutrophils 53.6 % (42.2-75.2); Absolute Basophils 0.1 10^3/uL (0-0.2); Absolute Immature Granulocytes 0.1 10^3/uL (0-0.05); Absolute Lymphocytes 2.5 10^3/uL (1.2-3.4); Absolute Monocytes 0.6 10^3/uL (0.1-0.6); Absolute Neutrophils 3.7 10^3/uL (1.4-6.5); Hematocrit 41.7 % (37.0-47.0); Hemoglobin 13.3 g/dL (12.0-16.0); Mean Corp Hgb Conc. 31.9 g/dL (33.0-37.0); Mean Corpuscular Hgb 29.7 pg (27.0-31.0); Mean Corpuscular Volume 93.1 fL (81.0-99.0); Mean Platelet Volume 9.4 fL (7.4-10.4); Nucleated Red Blood Cells % 0 %; Platelet Count 149 10^3/uL (130-400); Red Blood Cell Count 4.48 10^6/uL (4.20-5.40); Red Cell Dist. Width 16.9 % (11.5-14.5)
[2024-10-06 09:56] LABS: ALT (SGPT) 67 U/L (0-35); AST (SGOT) 82 U/L (14-36); Alkaline Phosphatase 255 U/L (38-126); Calcium 10.1 mg/dl (8.4-10.2); Carbon Dioxide 26 mmol/L (22-30); Chloride 103 mmol/L (98-107); Glucose 101 mg/dl (70-99); Potassium 4.4 mmol/L (3.5-5.1); Sodium 138 mmol/L (135-145); Total Bilirubin 0.6 mg/dl (0.2-1.3); Total Protein 7.5 g/dl (6.3-8.2); eGFR > 60.00
[2024-10-06 10:06] LABS: Blood Urea Nitrogen 9 mg/dl (7-17)
[2024-10-06 10:26] LABS: CEA 3.03 ng/ml
== END ==
LOC: REG 08:14
PROVIDERS: ATTENDING PHYSICIAN Internal Medicine Hematology & Oncology; FAMILY PHYSICIAN Physician Assistant Medical
DX: C18.0 Malignant neoplasm of cecum (principal); D70.9 Neutropenia, unspecified
CPT/HCPCS: 36415; 80053; 82378; 85025

== ENCOUNTER → 2025-01-09 08:57 | Outpatient (REF) | payer OTHER, SELFPAY ==
[2025-01-09 09:38] LABS: % Basophils 0.9 % (0-2); % Eosinophils 3.7 % (0-6); % Lymphocytes 47.2 % (20.5-51.1); % Monocytes 6.9 % (1.7-9.3); % Neutrophils 41.3 % (42.2-75.2); Absolute Eosinophils 0.2 10^3/uL (0-0.7); Absolute Lymphocytes 2.2 10^3/uL (1.2-3.4); Absolute Monocytes 0.3 10^3/uL (0.1-0.6); Absolute Neutrophils 1.9 10^3/uL (1.4-6.5); Hematocrit 43.3 % (37.0-47.0); Hemoglobin 14.4 g/dL (12.0-16.0); Mean Corp Hgb Conc. 33.3 g/dL (33.0-37.0); Mean Corpuscular Hgb 29.4 pg (27.0-31.0); Mean Corpuscular Volume 88.4 fL (81.0-99.0); Mean Platelet Volume 9.5 fL (7.4-10.4); Nucleated Red Blood Cells % 0 %; Platelet Count 146 10^3/uL (130-400); Red Cell Dist. Width 12.5 % (11.5-14.5); White Blood Cell Count 4.6 10^3/uL (4.8-10.8)
[2025-01-09 14:37] LABS: ALT (SGPT) 80 U/L (0-35); AST (SGOT) 72 U/L (14-36); Albumin 4.5 g/dl (3.5-5.0); Alkaline Phosphatase 180 U/L (38-126); Blood Urea Nitrogen 14 mg/dl (7-17); Calcium 10.4 mg/dl (8.4-10.2); Carbon Dioxide 29 mmol/L (22-30); Chloride 104 mmol/L (98-107); Glucose 88 mg/dl (70-99); Potassium 5.3 mmol/L (3.5-5.1); Sodium 141 mmol/L (135-145); Total Protein 7.6 g/dl (6.3-8.2); eGFR > 60.00
[2025-01-09 17:22] LABS: CEA 1.85 ng/ml
== END ==
LOC: REG 08:57
PROVIDERS: ATTENDING PHYSICIAN Internal Medicine Hematology & Oncology; FAMILY PHYSICIAN Physician Assistant Medical
DX: C18.0 Malignant neoplasm of cecum (principal); D70.9 Neutropenia, unspecified
CPT/HCPCS: 36415; 80053; 82378; 85025

== ENCOUNTER → 2025-01-12 08:37 | Outpatient (REF) | payer OTHER, SELFPAY | LOC: RAD 08:37 | PROVIDERS: ATTENDING PHYSICIAN Internal Medicine Hematology & Oncology; FAMILY PHYSICIAN Physician Assistant Medical | DX: C18.0 Malignant neoplasm of cecum (principal); D70.9 Neutropenia, unspecified | CPT/HCPCS: 71260; 74177; Q9967 ==

== ENCOUNTER → 2025-02-12 15:18 | Outpatient (REF) | payer OTHER, SELFPAY ==
[2025-02-12 16:29] LABS: Hematocrit 38.1 % (37.0-47.0); Hemoglobin 12.7 g/dL (12.0-16.0); Mean Corp Hgb Conc. 33.3 g/dL (33.0-37.0); Mean Corpuscular Hgb 29.2 pg (27.0-31.0); Mean Corpuscular Volume 87.6 fL (81.0-99.0); Mean Platelet Volume 9.8 fL (7.4-10.4); Platelet Count 159 10^3/uL (130-400); Red Blood Cell Count 4.35 10^6/uL (4.20-5.40); Red Cell Dist. Width 12.9 % (11.5-14.5); White Blood Cell Count 4.5 10^3/uL (4.8-10.8)
[2025-02-12 16:43] LABS: ALT (SGPT) 60 U/L (0-35); AST (SGOT) 54 U/L (14-36); Albumin 4.2 g/dl (3.5-5.0); Alkaline Phosphatase 147 U/L (38-126); Total Bilirubin 0.6 mg/dl (0.2-1.3); Total Protein 7.2 g/dl (6.3-8.2)
[2025-02-12 16:49] LABS: % Basophils 1.1 % (0-2); % Eosinophils 3.3 % (0-6); % Lymphocytes 51.5 % (20.5-51.1); % Monocytes 6.9 % (1.7-9.3); % Neutrophils 37.2 % (42.2-75.2); Absolute Basophils 0.1 10^3/uL (0-0.2); Absolute Eosinophils 0.2 10^3/uL (0-0.7); Absolute Lymphocytes 2.3 10^3/uL (1.2-3.4); Absolute Monocytes 0.3 10^3/uL (0.1-0.6); Absolute Neutrophils 1.7 10^3/uL (1.4-6.5); Nucleated Red Blood Cells % 0 %
[2025-02-13 09:46] LABS: Glycohemoglobin (HgbA1c) 5.4 % (4.0-5.6)
== END ==
LOC: REG 15:18
PROVIDERS: ATTENDING PHYSICIAN Physician Assistant Medical; FAMILY PHYSICIAN Physician Assistant Medical
DX: R73.09 Other abnormal glucose (principal); D72.828 Other elevated white blood cell count; R74.8 Abnormal levels of other serum enzymes
CPT/HCPCS: 36415; 80076; 83036; 85025

== ENCOUNTER 2025-02-23 06:23 | Day surgery (SDC) | payer OTHER, SELFPAY | END 2025-02-23 13:27 | disposition home or self-care (01) | LOC: GI 06:23 | PROVIDERS: ATTENDING PHYSICIAN Internal Medicine Gastroenterology; FAMILY PHYSICIAN Physician Assistant Medical | DX: Z12.11 Encounter for screening for malignant neoplasm of colon (principal); K64.8 Other hemorrhoids; Z85.038 Personal history of other malignant neoplasm of large intestine; Z98.0 Intestinal bypass and anastomosis status | CPT/HCPCS: G0105 ==

== ENCOUNTER → 2025-03-10 07:17 | Outpatient (REF) | payer OTHER, SELFPAY | LOC: RAD 07:17 | PROVIDERS: ATTENDING PHYSICIAN Physician Assistant Medical | DX: R74.8 Abnormal levels of other serum enzymes (principal) | CPT/HCPCS: 76700 ==

== ENCOUNTER → 2025-04-16 09:02 | Outpatient (REF) | payer OTHER, SELFPAY ==
[2025-04-16 09:02] LABS: Hematocrit 39.4 % (37.0-47.0); Hemoglobin 13.4 g/dL (12.0-16.0); Mean Corp Hgb Conc. 34.0 g/dL (33.0-37.0); Mean Corpuscular Volume 87.8 fL (81.0-99.0); Platelet Count 167 10^3/uL (130-400); Red Cell Dist. Width 12.1 % (11.5-14.5)
[2025-04-16 09:54] LABS: Glycohemoglobin (HgbA1c) 5.1 % (4.0-5.6)
[2025-04-16 10:05] LABS: ALT (SGPT) 40 U/L (0-35); AST (SGOT) 39 U/L (14-36); Albumin 4.2 g/dl (3.5-5.0); Alkaline Phosphatase 108 U/L (38-126); Blood Urea Nitrogen 10 mg/dl (7-17); Calcium 9.7 mg/dl (8.4-10.2); Carbon Dioxide 24 mmol/L (22-30); Chloride 105 mmol/L (98-107); Glucose 79 mg/dl (70-99); Potassium 4.3 mmol/L (3.5-5.1); Sodium 136 mmol/L (135-145); Total Protein 7.1 g/dl (6.3-8.2); eGFR > 60.00
[2025-04-17 19:33] LABS: CEA 2.07 ng/ml
== END ==
LOC: OIDL 09:02
PROVIDERS: ATTENDING PHYSICIAN Internal Medicine Hematology & Oncology
DX: C18.0 Malignant neoplasm of cecum (principal)
CPT/HCPCS: 80053; 82378; 83036; 85025

== ENCOUNTER → 2025-07-09 12:08 | Outpatient (REF) | payer OTHER, SELFPAY ==
[2025-07-09 12:49] LABS: Hematocrit 38.9 % (37.0-47.0); Hemoglobin 13.2 g/dL (12.0-16.0); Mean Corp Hgb Conc. 33.9 g/dL (33.0-37.0); Mean Corpuscular Volume 89.4 fL (81.0-99.0); Platelet Count 173 10^3/uL (130-400); Red Cell Dist. Width 12.5 % (11.5-14.5)
[2025-07-09 13:46] LABS: ALT (SGPT) 49 U/L (0-35); AST (SGOT) 42 U/L (14-36); Albumin 4.2 g/dl (3.5-5.0); Alkaline Phosphatase 105 U/L (38-126); Blood Urea Nitrogen 12 mg/dl (7-17); Calcium 9.5 mg/dl (8.4-10.2); Carbon Dioxide 26 mmol/L (22-30); Chloride 105 mmol/L (98-107); Glucose 95 mg/dl (70-99); Potassium 4.0 mmol/L (3.5-5.1); Sodium 136 mmol/L (135-145); Total Protein 7.3 g/dl (6.3-8.2); eGFR > 60.00
[2025-07-09 14:10] LABS: CEA 2.02 ng/ml
== END ==
LOC: CLAB 12:08
PROVIDERS: ATTENDING PHYSICIAN Internal Medicine Hematology & Oncology
DX: C18.0 Malignant neoplasm of cecum (principal)
CPT/HCPCS: 80053; 82378; 85025

== ENCOUNTER → 2025-07-14 13:50 | Outpatient (REF) | payer OTHER, SELFPAY | LOC: WDC 13:50 | PROVIDERS: ATTENDING PHYSICIAN Obstetrics & Gynecology; FAMILY PHYSICIAN Physician Assistant Medical | DX: Z12.31 Encounter for screening mammogram for malignant neoplasm of breast (principal) | CPT/HCPCS: 77063; 77067 ==